=== PATIENT | female | born 1940 | race Caucasian/White ===

== ENCOUNTER 2022-02-17 11:23 | Inpatient (IN) ==
[2022-02-17 12:10] LABS: ABS Lymphocytes 1.1 10^3/ul (1.0-4.8); ABS Monocytes 0.5 10^3/ul (0-0.8); ABS Neutrophils 4.6 10^3/ul (1.5-7.7); Eosinophil % 0.6 %; Hematocrit 36 % (35-47); Hemoglobin 11.7 g/dL (12.0-16.0); Lymphocyte % 16.9 %; Mean Corpuscular HGB Conc 32 g/dL (31-36); Mean Corpuscular Hemoglobin 29 pg (27-31); Mean Corpuscular Volume 90 fL (80-97); Mean Platelet Volume 8.6 fL (7.4-10.4); Nucleated Red Blood Cells % 0.1; Platelet Count 146 10^3/uL (150-450); Red Cell Distribution Width 17 % (10-15); White Blood Count 6.3 10^3/uL (3.5-10.8)
[2022-02-17 12:23] LABS: INR 1.66 (0.89-1.11)
[2022-02-17 13:50] LABS: High Sensitivity Troponin 1 Hr 544 pg/mL (<15)
[2022-02-17 14:00] LABS: Total Protein 6.2 g/dL (6.4-8.9)
[2022-02-17 14:22] LABS: Albumin 3.7 g/dL (3.2-5.2); Albumin/Globulin Ratio 1.5 (1-3); Globulin 2.5 g/dL (2-4)
[2022-02-17 14:36] LABS: Calcium 9.1 mg/dL (8.6-10.3); Potassium 4.1 mmol/L (3.5-5.0); Total Bilirubin 0.7 mg/dL (0.2-1.0); eGFR CKD-EPI 69.6 (>60)
[2022-02-17] MEDS ORDERED: Heparin 5000 UNITS/ML 1 mL VIAL IV SCH (17:00)
[2022-02-17 17:11] LABS: ABS Basophils 0.1 10^3/ul (0-0.2); ABS Lymphocytes 1.6 10^3/ul (1.0-4.8); ABS Monocytes 0.5 10^3/ul (0-0.8); ABS Neutrophils 3.7 10^3/ul (1.5-7.7); Eosinophil % 0.7 %; Hematocrit 35 % (35-47); Hemoglobin 11.3 g/dL (12.0-16.0); Mean Corpuscular HGB Conc 32 g/dL (31-36); Mean Corpuscular Hemoglobin 29 pg (27-31); Mean Corpuscular Volume 89 fL (80-97); Mean Platelet Volume 8.5 fL (7.4-10.4); Nucleated Red Blood Cells % 0.1; Platelet Count 144 10^3/uL (150-450); Red Blood Count 3.91 10^6 /uL (3.70-4.87); Red Cell Distribution Width 17 % (10-15); White Blood Count 5.8 10^3/uL (3.5-10.8)
[2022-02-17] MEDS: Heparin DRIP 25,000 UNITS BAG 25,000 UNITS/500 ML BAG IV SCH (17:19)
[2022-02-17] MEDS ORDERED: Magnesium Hydroxide LIQ 30 ML UDC PO PRN (17:51)
[2022-02-17 18:38] LABS: eGFR CKD-EPI 68.7 (>60)
[2022-02-17] MEDS: HYDROcodone/ACETAMIN 5/325 mg TAB PO SCH (20:00)
[2022-02-18] MEDS: HYDROcodone/ACETAMIN 5/325 mg TAB PO PRN ×2 (01:48→19:40)
[2022-02-18 04:56] LABS: ABS Basophils 0.1 10^3/ul (0-0.2); ABS Eosinophils 0.1 10^3/ul (0-0.6); ABS Monocytes 0.6 10^3/ul (0-0.8); ABS Neutrophils 4.4 10^3/ul (1.5-7.7); Eosinophil % 0.8 %; Hematocrit 35 % (35-47); Hemoglobin 11.2 g/dL (12.0-16.0); Lymphocyte % 27.7 %; Mean Corpuscular HGB Conc 33 g/dL (31-36); Mean Corpuscular Hemoglobin 29 pg (27-31); Mean Corpuscular Volume 90 fL (80-97); Mean Platelet Volume 8.8 fL (7.4-10.4); Nucleated Red Blood Cells % 0.1; Platelet Count 145 10^3/uL (150-450); Red Blood Count 3.85 10^6 /uL (3.70-4.87); Red Cell Distribution Width 16 % (10-15); White Blood Count 7.1 10^3/uL (3.5-10.8)
[2022-02-18 06:15] LABS: Calcium 8.9 mg/dL (8.6-10.3); Magnesium 1.8 mg/dL (1.9-2.7); Potassium 3.8 mmol/L (3.5-5.0)
[2022-02-18] MEDS ORDERED: Dextrose 50% Syringe 50 ml 25 GM/50 ML SYRINGE IV PUSH PRN (07:29)
[2022-02-18] MEDS ORDERED: Magnesium Sulfate 2 gm BAG 2 GM/50 ML BAG IVPB ONE (08:00)
[2022-02-18] MEDS: DULoxetine DR 20 mg CAP PO SCH (08:56)
[2022-02-18] MEDS: Insulin GLARGINE 100 un/ml 10 ml VIAL SUBCUT SCH (08:57)
[2022-02-18] MEDS: HYDROcodone/ACETAMIN 5/325 mg TAB PO SCH ×3 (08:59→19:40)
[2022-02-18] MEDS ORDERED: Potassium Chlor 20 meq TAB.ER PO ONE (09:00)
[2022-02-18 09:07] LABS: eGFR CKD-EPI 59.4 (>60)
[2022-02-19] MEDS: Heparin DRIP 25,000 UNITS BAG 25,000 UNITS/500 ML BAG IV SCH (03:06)
[2022-02-19 06:36] LABS: ABS Eosinophils 0.1 10^3/ul (0-0.6); ABS Lymphocytes 1.9 10^3/ul (1.0-4.8); ABS Monocytes 0.6 10^3/ul (0-0.8); ABS Neutrophils 3.9 10^3/ul (1.5-7.7); Eosinophil % 1.4 %; Hematocrit 38 % (35-47); Hemoglobin 12.2 g/dL (12.0-16.0); Lymphocyte % 29.7 %; Mean Corpuscular HGB Conc 33 g/dL (31-36); Mean Corpuscular Hemoglobin 30 pg (27-31); Mean Corpuscular Volume 91 fL (80-97); Nucleated Red Blood Cells % 0.1; Platelet Count 136 10^3/uL (150-450); Red Blood Count 4.13 10^6 /uL (3.70-4.87); Red Cell Distribution Width 17 % (10-15); White Blood Count 6.5 10^3/uL (3.5-10.8)
[2022-02-19] MEDS: HYDROcodone/ACETAMIN 5/325 mg TAB PO SCH ×2 (08:10→13:50)
[2022-02-19] MEDS: DULoxetine DR 20 mg CAP PO SCH (08:10)
[2022-02-19] MEDS: Insulin GLARGINE 100 un/ml 10 ml VIAL SUBCUT SCH (08:11)
[2022-02-19] MEDS ORDERED: Isosorbide Mononit ER 30mg TAB PO ONE (08:56)
[2022-02-19 16:52] VITALS: BP 100/67
== END 2022-02-19 16:40 | DRG 282 ==
LOC: ED 11:23 → EDHOLD 16:32 → MEDTELE 18:44
PROVIDERS: ADMIT Student in an Organized Health Care Education/Training Program; ATTEND Student in an Organized Health Care Education/Training Program

== ENCOUNTER 2022-04-27 22:01 | Inpatient (IN) ==
[2022-04-27] MEDS ORDERED: NS 0.9% 1000 ml BAG 1,000 ML IV ONE (22:36)
[2022-04-27 22:51] LABS: ABS Lymphocytes 1.1 10^3/ul (1.0-4.8); ABS Monocytes 0.9 10^3/ul (0-0.8); ABS Neutrophils 10.1 10^3/ul (1.5-7.7); Hematocrit 41 % (35-47); Hemoglobin 12.9 g/dL (12.0-16.0); Lymphocyte % 9.1 %; Mean Corpuscular HGB Conc 32 g/dL (31-36); Mean Corpuscular Hemoglobin 30 pg (27-31); Mean Corpuscular Volume 93 fL (80-97); Mean Platelet Volume 9.3 fL (7.4-10.4); Platelet Count 166 10^3/uL (150-450); Red Blood Count 4.37 10^6 /uL (3.70-4.87); Red Cell Distribution Width 15 % (10-15); White Blood Count 12.1 10^3/uL (3.5-10.8)
[2022-04-27 23:03] LABS: INR 1.54 (0.89-1.11)
[2022-04-27 23:25] LABS: Albumin/Globulin Ratio 1.3 (1-3); Calcium 9.4 mg/dL (8.6-10.3); Globulin 3.1 g/dL (2-4); Magnesium 1.7 mg/dL (1.9-2.7); Potassium 3.8 mmol/L (3.5-5.0); Total Protein 7.1 g/dL (6.4-8.9)
[2022-04-27 23:39] LABS: TSH Ultra Thyroid Stim Horm 0.82 mcIU/mL (0.34-5.60)
[2022-04-28 00:08] LABS: High Sensitivity Troponin 1 Hr 183 pg/mL (<15)
[2022-04-28 01:10] LABS: Urine Appearance Clear; Urine Bilirubin Negative (Negative); Urine Blood Negative (Negative); Urine Color Yellow; Urine Glucose Negative (Negative); Urine Ketones Negative (Negative); Urine Nitrite Negative (Negative); Urine Protein 1+(30 mg/dL) (Negative); Urine Specific Gravity 1.013 (1.002-1.030); Urine Urobilinogen Negative (Negative)
[2022-04-28 01:17] LABS: Urine Bacteria Absent (Absent); Urine Red Blood Cell Trace(0-2/hpf) (Absent); Urine Squamous Epithelial Cell Present (Absent); Urine White Blood Cell Trace(0-5/hpf) (Absent)
[2022-04-28 02:44] LABS: C Reactive Protein 126.5 mg/L (<8.01)
[2022-04-28] MEDS ORDERED: Magnesium Hydroxide LIQ 30 ML UDC PO PRN (02:51)
[2022-04-28] MEDS ORDERED: Magnesium Sulfate IV 3 GM in NS 0.9% 100 ml BAG 100 ML IVPB ONE (02:54)
[2022-04-28] MEDS ORDERED: Cefepime 2 GM IV - ED ONCE IV ONE (03:00)
[2022-04-28] MEDS ORDERED: Vancomycin per Pharmacy 1 EA NOTE FOLLOW UP SCH (03:00)
[2022-04-28] MEDS ORDERED: Dextrose 50% Syringe 50 ml 25 GM/50 ML SYRINGE IV PUSH PRN (03:53)
[2022-04-28] MEDS ORDERED: Vancomycin 1,250 MG in NS 0.9% 250 ml 250 ML IVPB ONE (06:45)
[2022-04-28] MEDS ORDERED: KCL 20 MEQ/100 ML IVPREMIX 20 MEQ/100 ML BAG IV ONE (06:53)
[2022-04-28 06:56] LABS: ABS Neutrophils 8.5 10^3/ul (1.5-7.7); Hematocrit 41 % (35-47); Hemoglobin 13.5 g/dL (12.0-16.0); Lymphocyte % 9.9 %; Mean Corpuscular HGB Conc 33 g/dL (31-36); Mean Corpuscular Hemoglobin 31 pg (27-31); Mean Corpuscular Volume 93 fL (80-97); Mean Platelet Volume 9.2 fL (7.4-10.4); Platelet Count 149 10^3/uL (150-450); Red Blood Count 4.39 10^6 /uL (3.70-4.87); Red Cell Distribution Width 15 % (10-15); White Blood Count 10.5 10^3/uL (3.5-10.8)
[2022-04-28 07:14] LABS: Blood Urea Nitrogen 11 mg/dL (6-24); CO2 Carbon Dioxide 27 mmol/L (22-32); Calcium 9.3 mg/dL (8.6-10.3); Chloride 96 mmol/L (101-111); Glucose 166 mg/dL (70-100); Magnesium 2.9 mg/dL (1.9-2.7); Sodium 134 mmol/L (135-145)
[2022-04-28 07:16] LABS: Anion Gap 11 mmol/L (2-11)
[2022-04-28] MEDS: Insulin GLARGINE 100 un/ml 10 ml VIAL SUBCUT SCH (10:51)
[2022-04-28] MEDS: DULoxetine DR 20 mg CAP PO SCH (10:51)
[2022-04-28] MEDS: CMCS: Dabigatran 150 mg CAP (NF) PO SCH ×2 (11:00→20:51)
[2022-04-28] MEDS ORDERED: Potassium Chlor 20 meq TAB.ER PO ONE (12:57)
[2022-04-28] MEDS ORDERED: LORazepam 2 mg VIAL 1 ml IV PUSH ONE (14:19)
[2022-04-28] MEDS ORDERED: Lorazepam PYXIS KEY PRN (14:19)
[2022-04-28] MEDS: Cefepime 2 GM in Dextrose 2 GM/50 ML BAG IV SCH (15:50)
[2022-04-29] MEDS: Cefepime 2 GM in Dextrose 2 GM/50 ML BAG IV SCH ×2 (02:52→16:55)
[2022-04-29 06:08] LABS: ABS Lymphocytes 1.5 10^3/ul (1.0-4.8); ABS Monocytes 0.9 10^3/ul (0-0.8); ABS Neutrophils 4.9 10^3/ul (1.5-7.7); Eosinophil % 0.5 %; Hematocrit 38 % (35-47); Hemoglobin 12.3 g/dL (12.0-16.0); Lymphocyte % 19.7 %; Mean Corpuscular HGB Conc 33 g/dL (31-36); Mean Corpuscular Hemoglobin 30 pg (27-31); Mean Corpuscular Volume 92 fL (80-97); Mean Platelet Volume 9.2 fL (7.4-10.4); Nucleated Red Blood Cells % 0.1; Platelet Count 140 10^3/uL (150-450); Red Cell Distribution Width 16 % (10-15); White Blood Count 7.4 10^3/uL (3.5-10.8)
[2022-04-29] MEDS ORDERED: Vancomycin 1,250 MG in NS 0.9% 250 ml 250 ML IVPB ONE (06:30)
[2022-04-29 06:31] LABS: Calcium 8.9 mg/dL (8.6-10.3); Magnesium 1.9 mg/dL (1.9-2.7); Potassium 3.5 mmol/L (3.5-5.0)
[2022-04-29 06:37] LABS: eGFR CKD-EPI 71.7 (>60)
[2022-04-29] MEDS ORDERED: Magnesium Sulfate IV 1GM/100ML 1 GM/100 ML BAG IV ONE (07:29)
[2022-04-29] MEDS ORDERED: Potassium Chlor 20 meq TAB.ER PO ONE (07:30)
[2022-04-29] MEDS: Insulin GLARGINE 100 un/ml 10 ml VIAL SUBCUT SCH (09:02)
[2022-04-29] MEDS: DULoxetine DR 20 mg CAP PO SCH (09:02)
[2022-04-29] MEDS: CMCS: Dabigatran 150 mg CAP (NF) PO SCH ×3 (09:02→20:18)
[2022-04-29] MEDS ORDERED: Lorazepam PYXIS KEY PRN (12:17)
[2022-04-29] MEDS ORDERED: LORazepam 2 mg VIAL 1 ml IV PUSH ONE (12:17)
[2022-04-30] MEDS: HYDROcodone/ACETAMIN 5/325 mg TAB PO PRN ×2 (01:08→11:01)
[2022-04-30] MEDS ORDERED: LORazepam 2 mg VIAL 1 ml IV PUSH ONE (01:27)
[2022-04-30] MEDS ORDERED: Lorazepam PYXIS KEY PRN ×2 (01:27→18:25)
[2022-04-30] MEDS: Cefepime 2 GM in Dextrose 2 GM/50 ML BAG IV SCH ×2 (03:11→15:17)
[2022-04-30] MEDS: Vancomycin 1,250 MG in NS 0.9% 250 ml 250 ML IVPB SCH (05:59)
[2022-04-30] MEDS: DULoxetine DR 20 mg CAP PO SCH (10:47)
[2022-04-30] MEDS: Insulin GLARGINE 100 un/ml 10 ml VIAL SUBCUT SCH (10:57)
[2022-04-30] MEDS: CMCS: Dabigatran 150 mg CAP (NF) PO SCH ×2 (11:02→19:58)
[2022-04-30 12:29] LABS: Calcium 9.2 mg/dL (8.6-10.3); Magnesium 1.8 mg/dL (1.9-2.7); Potassium 3.5 mmol/L (3.5-5.0); eGFR CKD-EPI 83.6 (>60)
[2022-04-30] MEDS ORDERED: LORazepam 2 mg VIAL 1 ml IV PUSH PRN (18:25)
[2022-05-01] MEDS: Cefepime 2 GM in Dextrose 2 GM/50 ML BAG IV SCH ×2 (03:22→15:55)
[2022-05-01] MEDS ORDERED: Vancomycin Trough Check NOTE FOLLOW UP ONE (06:00)
[2022-05-01 06:52] LABS: Blood Urea Nitrogen 18 mg/dL (6-24); CO2 Carbon Dioxide 28 mmol/L (22-32); Calcium 9.4 mg/dL (8.6-10.3); Chloride 100 mmol/L (101-111); Glucose 145 mg/dL (70-100); Sodium 141 mmol/L (135-145); Vancomycin Trough 14.1 mcg/mL
[2022-05-01 06:58] LABS: Anion Gap 13 mmol/L (2-11)
[2022-05-01] MEDS: Vancomycin 1,250 MG in NS 0.9% 250 ml 250 ML IVPB SCH (06:59)
[2022-05-01] MEDS: Insulin GLARGINE 100 un/ml 10 ml VIAL SUBCUT SCH (07:56)
[2022-05-01] MEDS: DULoxetine DR 20 mg CAP PO SCH (08:11)
[2022-05-01] MEDS: CMCS: Dabigatran 150 mg CAP (NF) PO SCH ×2 (08:11→20:38)
[2022-05-01] MEDS: HYDROcodone/ACETAMIN 5/325 mg TAB PO PRN ×2 (10:55→18:13)
[2022-05-02] MEDS: HYDROcodone/ACETAMIN 5/325 mg TAB PO PRN ×2 (02:19→23:00)
[2022-05-02] MEDS: Cefepime 2 GM in Dextrose 2 GM/50 ML BAG IV SCH ×2 (03:16→15:32)
[2022-05-02] MEDS: Vancomycin 1,250 MG in NS 0.9% 250 ml 250 ML IVPB SCH (05:55)
[2022-05-02] MEDS: DULoxetine DR 20 mg CAP PO SCH (08:09)
[2022-05-02] MEDS: CMCS: Dabigatran 150 mg CAP (NF) PO SCH ×2 (08:10→23:01)
[2022-05-02] MEDS: Insulin GLARGINE 100 un/ml 10 ml VIAL SUBCUT SCH (08:10)
[2022-05-03] MEDS: Cefepime 2 GM in Dextrose 2 GM/50 ML BAG IV SCH (06:13)
[2022-05-03 07:15] LABS: Calcium 9.2 mg/dL (8.6-10.3); Magnesium 1.5 mg/dL (1.9-2.7); Potassium 3.6 mmol/L (3.5-5.0); eGFR CKD-EPI 61.7 (>60)
[2022-05-03] MEDS ORDERED: Potassium Chlor 20 meq TAB.ER PO ONE (07:19)
[2022-05-03] MEDS: Insulin GLARGINE 100 un/ml 10 ml VIAL SUBCUT SCH (09:54)
[2022-05-03] MEDS: CMCS: Dabigatran 150 mg CAP (NF) PO SCH ×2 (09:54→21:43)
[2022-05-03] MEDS: DULoxetine DR 20 mg CAP PO SCH (09:54)
[2022-05-03] MEDS: Vancomycin 1,250 MG in NS 0.9% 250 ml 250 ML IVPB SCH (14:42)
[2022-05-03] MEDS ORDERED: Sulfamethox/Trimethoprim DS TAB 800/160 mg PO SCH (21:00)
[2022-05-03] MEDS: HYDROcodone/ACETAMIN 5/325 mg TAB PO PRN (21:41)
[2022-05-04] MEDS: Insulin GLARGINE 100 un/ml 10 ml VIAL SUBCUT SCH (08:53)
[2022-05-04] MEDS: DULoxetine DR 20 mg CAP PO SCH (08:56)
[2022-05-04] MEDS: CMCS: Dabigatran 150 mg CAP (NF) PO SCH ×2 (08:58→22:33)
[2022-05-04] MEDS: HYDROcodone/ACETAMIN 5/325 mg TAB PO PRN (17:05)
[2022-05-04 19:40] VITALS: BP 101/60
[2022-05-04] MEDS ORDERED: Haloperidol 5 mg/ml SDV IV/IM 5 MG/ML AMP IV SLOW PU ONE (23:37)
== END 2022-05-05 08:40 | DRG 92 ==
LOC: ED 22:01 → SUATTDRO 04-28 02:51 → EDHOLD 04-28 02:51 → MEDTELE 04-28 06:31
PROVIDERS: ADMIT Internal Medicine; ATTEND Internal Medicine